=== PATIENT | male | born 1955 | race Caucasian/White ===

== ENCOUNTER 2018-10-17 07:19 | Day surgery (SDC) | payer OTHER ==
[2018-10-17] VITALS (15 sets, daily range): BP systolic 136–163; BP diastolic 68–91; PULSE 60–76; RESP 6–27; Ht 167.6 cm; Wt 94.2 kg
[~2018-10-17] VITALS: Ht 167.6 cm; Wt 94.2 kg
[~2018-10-17 07:19] MED LIST: BISA10SU75 PR; CEFAZOLIN 1 GM INJ ONE; CEFAZOLIN 2 GM/50 ML (PMX) 50 ML IVPB SCH; COU5 PO; HYDR12.53 PO; LISI-471 PO; ONDANSETRON 4 MG INJ ONE; PANT40TA4 PO; SIME80TA60 PO; SOD CHLORIDE 0.9% 1,000 ML IV SCH
[2018-10-17] MEDS ORDERED: LOSA50TA14 PO (08:14)
[2018-10-17] MEDS ORDERED: SULF500T45 PO (08:14)
[2018-10-17] MEDS ORDERED: NEBI10TA2 PO (08:14)
[2018-10-17] MEDS ORDERED: GABA300C PO (08:14)
[2018-10-17] MEDS ORDERED: PANT40TA3 PO (08:27)
[2018-10-17] MEDS ORDERED: FENTAnyl 50 MCG/ML VIAL ONE (08:41)
[2018-10-17] MEDS ORDERED: MIDAZOLAM 1 MG/ML 2 ML INJ ONE (08:42)
[2018-10-17] MEDS ORDERED: PROPOFOL 20 ML ONE (08:43)
[2018-10-17] MEDS ORDERED: LIDOCAINE 2% (SDV) 5 ML INJ ONE (08:43)
[2018-10-17] MEDS ORDERED: ROCURONIUM 50 MG INJ ONE (08:43)
[2018-10-17] MEDS ORDERED: SUCCINYLCHOLINE CHLORIDE 100 MG/5 ML SYG IV ONE (08:43)
[2018-10-17] MEDS ORDERED: METOCLOPRAMIDE 10 MG INJ ONE (08:44)
--- NOTE | 2018-10-17 09:14 | HPN ---
Date/Time of Note Date/Time of Note DATE: 10/17/18 TIME: 09:14 Interval H&P Admission Note Pt. seen H&P reviewed: No system changes BERNADETTE GLASGOW MD Oct 17, 2018 09:14
[2018-10-17] MEDS ORDERED: BUPIVACAINE 0.25% (MPF) 30 ML INJ ONE (09:27)
[2018-10-17] MEDS ORDERED: MIDAZOLAM 1 MG/ML 2 ML INJ IV PRN (09:30)
[2018-10-17] MEDS ORDERED: ONDANSETRON 4 MG INJ IV PRN ×2 (09:30→12:30)
[2018-10-17] MEDS ORDERED: KETOROLAC 30 MG INJ IV PRN ×2 (09:30→12:30)
[2018-10-17] MEDS ORDERED: LEVALBUTEROL (NEB) 1.25 MG/0.5 ML AMP HHN PRN (09:30)
[2018-10-17] MEDS ORDERED: hydrALAzine 20 MG INJ IV PRN (09:30)
[2018-10-17] MEDS ORDERED: LABETALOL HCL 20MG INJ IV PRN (09:30)
[2018-10-17] MEDS ORDERED: LORAZEPAM 2 MG INJ IV PRN (09:30)
[2018-10-17] MEDS ORDERED: DIPHENHYDRAMINE 50 MG INJ IV PRN (09:30)
[2018-10-17] MEDS ORDERED: MEPERIDINE 25 MG INJ IV PRN (09:30)
[2018-10-17] MEDS ORDERED: HYDROmorphONE 1 MG/5 ML IV SYRINGE IV PRN ×3 (09:30)
[2018-10-17] MEDS ORDERED: FENTAnyl 50 MCG/ML VIAL IV PRN (09:30)
--- NOTE | 2018-10-17 09:30 | PREAC ---
Date/Time of Note Date/Time of Note DATE: 10/17/18 TIME: 09:29 Anesthesia Eval and Record Evaluation Time Pre-Procedure Interview DATE: 10/17/18 TIME: 09:29 Age 62 Sex male NPO: 8 hrs Preoperative diagnosis inguinal hernia Planned procedure R open repair of inguinal hernia Past Medical History Past Medical History: Includes Cardio: HTN, Dyslipidemia, CHF Neuro: Peripheral neuropathy GI: GERD Psych: Depression, Anxiety Surgery & Anesthesia Issues No known issue Meds Anticoagulation: No Beta Liya within 24 hr: Yes Reported Medications Pantoprazole* (Protonix*) 40 Mg Tablet.dr, 40 MG PO DAILY, TAB 10/17/18 Nebivolol Hcl* (Bystolic*) 10 Mg Tablet, 10 MG PO DAILY, #30 TAB 10/17/18 Losartan Potassium* (Losartan Potassium*) 50 Mg Tablet, 50 MG PO DAILY, TAB 10/17/18 Sulfasalazine (Azulfidine) 500 Mg Tab, 500 MG PO BID, #60 TAB 10/17/18 Gabapentin* (Neurontin*) 300 Mg Capsule, 300 MG PO BID, #60 CAP 10/17/18 Discontinued Reported Medications Lisinopril* (Lisinopril*) 20 Mg Tablet, 20 MG PO DAILY, TAB 02/26/14 Discontinued Scripts Warfarin Sod (Coumadin) 5 Mg Tab, 5 MG PO ONCE@17, #30 Prov:FREIDA WARREN MD 03/08/14 Simethicone* (Mylicon*) 80 Mg Tab, 80 MG PO Q6, #30 TAB Prov:FREIDA WARREN MD 03/08/14 Pantoprazole (Protonix) 40 Mg Tabec, 40 MG PO BID, #30 Prov:FREIDA WARREN MD 03/08/14 Hydrochlorothiazide (Hydrochlorothiazide) 12.5 Mg Cap, 12.5 MG PO AC BREAKFAST, #20 Prov:FREIDA WARREN MD 03/08/14 Bisacodyl* (Bisacodyl*) 10 Mg Supp, 10 MG MT DAILY PRN for CONSTIPATION, #30 SUPP Prov:FREIDA WARREN MD 03/08/14 Current Medications Sodium Chloride 1,000 ml @ 75 mls/hr [id number] IV ; Start 10/17/18 at 06:00; Stop 10/17/18 at 19:19 Cefazolin Sodium/ Dextrose 50 ml @ 100 mls/hr PREOP IVPB ; Start 10/17/18 at 06:00; Stop 10/17/18 at 16:00 Meds reviewed: Yes Allergies Coded Allergies: No Known Allergy (Unverified , 10/17/18) Allergies Reviewed: Yes Labs/Studies Labs Reviewed: Reviewed by anesthesiologist test: N/A Pre-procedure Exam Last vitals Vital Signs Date Temp Pulse Resp B/P (MAP) Pulse Ox O2 O2 Flow FiO2 Time Delivery Rate 10/17/18 98.0 60 16 163/86 98 Room Air 08:06 (111) Airway: Adequate mouth opening, Adequate thyromental dist Mallampati: Mallampati IV Teeth: Normal Lung: Normal Heart: Normal ASA Physical Status ASA physical status: 3 Emergency: None Planned Anesthetic General/MAC: ETT Planned Pain Management Single shot nerve block, Parenteral pain med, Local by surgeon Pre-operative Attestations Prior to commencing anesthesia and surgery, the patient was re-evaluated, there was verification of: *The patient's identity *The results of appropriate recent lab work and preoperative vital signs *The above evaluation not changing prior to induction *Anesthetic plan, risk benefits, alternative and complications discussed with patient/family; questions answered; patient/family understands, accepts and wishes to proceed. NEWTON PADGETT MD Oct 17, 2018 09:30
[2018-10-17] MEDS ORDERED: ROPIVACAINE 0.5 % 30 ML VIAL ONE (12:06)
[2018-10-17] MEDS ORDERED: morphine 2 MG INJ IV PRN (12:30)
[2018-10-17] MEDS ORDERED: IBUPROFEN 600 MG TAB PO PRN (12:30)
[2018-10-17] MEDS ORDERED: HYDROCODONE/APAP (5/325) TAB PO PRN ×2 (12:30)
--- NOTE | 2018-10-17 12:46 | OPR ---
Date/Time of Note Date/Time of Note DATE: 10/17/18 TIME: 12:30 Operative Report Procedure Date: Oct 17, 2018 Preoperative Diagnosis Recurrent right inguinal hernia with chronically incarcerated bladder Postoperative Diagnosis Recurrent right inguinal hernia with chronically incarcerated bladder Operation/Procedure Performed 1. Open repair of recurrent right inguinal hernia with mesh (modifier 22) 2. Right ilioinguinal nerve block Surgeon see signature line Glass Smoother Otf Fortune MD Anesthesia Type: general Anesthesiologist: NEWTON PADGETT MD Estimated Blood Loss: 10 - 50 ml's Transfusion none Specimen Hernia sac Grafts/Implants Ethicon ultra pro plug and patch size large Complications none Pt Condition Post Procedure: stable Disposition: PACU Indications The patient is a 62-year-old male with multiple comorbidities including prior multiple inguinal and ventral hernia repairs which were sustained as a sequelae of perforated viscus secondary to liposuction and abdominoplasty which required exploratory laparotomy who presented to the office complaining of a painful right groin bulge as well as difficulty with urination. He was diagnosed on clinical exam as having a right inguinal hernia which was chronically nonreducible. A preoperative CT scan of the abdomen and pelvis was obtained which showed a large recurrent right inguinal hernia containing a significant portion of the urinary bladder. The patient was scheduled for open right inguinal hernia repair with mesh to prevent sequelae of hernia disease which include, but are not limited to: Incarceration and strangulation. All risks and benefits of the procedure including but not limited to: Wound infection, excessive bleeding, postoperative seroma/hematoma formation, nerve injury which may be temporary versus permanent, injury to the reproductive organs including the vas deferens and the testicle which may lead to testicular atrophy, injury to intra-abdominal organs necessitating subsequent operation, hernia recurrence, chronic pain, etc. were all explained to the patient full detail. The patient fully understood and wished to proceed with the procedure. Informed consent was therefore obtained. Procedure Description The patient was brought to the operating room and placed supine on the operating table. Bilateral sequential compression devices were placed on both lower extremities. A dose of broad-spectrum perioperative intravenous antibiotics was given. After the induction of smooth general anesthesia a Soto catheter was placed under sterile conditions and the patient's abdomen and bilateral groins were prepped and draped in standard surgical fashion. After performance of the surgical timeout 0.25% Marcaine with epinephrine was injected over the area of the incision. Incision was then made using a 15 blade scalpel from the right pubic tubercle towards the right anterior superior iliac spine. Incision was carried down through the skin into the subcutaneous tissues using Bovie electrocautery. There was fibrous replacement chronic scarring of the subcutaneous tissues all the way down to the level of Giacomo's fascia. Giacomo's fascia was incised. A large direct inguinal hernia sac containing the bladder was identified. Dissection was continued down to the level the aponeurosis of the external oblique muscle. External oblique muscle was replaced by scar tissue. There was a firm mass palpated in this area which appeared to be consistent with the prior mesh. There was scarring of the external oblique aponeurosis to the hernia sac. This was quite dense scarring with obliteration of natural planes. The area was gently opened and tedious dissection above that which was usual and customary for procedure of this type was performed to separate the sac from the prior mesh and the external oblique muscle. The sac was also identified to be densely adhered to the cord. It was dissected off of the cord. The cord was then isolated using a [place] drain. The ilioinguinal nerve was not identified. The cord structures were preserved throughout the entirety of the procedure. The sac was gently opened atraumatically. The bladder was identified. It was dissected off of the sac taking great care not to injure the bladder. The sac was transected and passed off the field as speci men. The large direct hernia defect was identified once dissected free of surrounding tissues the bladder was reduced back into its anatomical position. A complete blowout of the floor of the inguinal canal was also identified. The remaining tissues were attenuated and weak. The portions of the old mesh which could not be safely dissected from the aponeurosis of the external oblique muscle and spermatic cord were left in situ. The direct hernia defect was then repaired using a large sized Ethicon ultra pro plug. The plug was sutured in place using interrupted 3-0 Vicryl sutures. An onlay mesh was then used to reconstruct the floor of the inguinal canal. It was secured in place using interrupted 2-0 Novafil sutures. Both the plug and the mesh were soaked in antibiotic irrigation prior to placement in the field. A slit was made in the mesh to accommodate the spermatic cord. With the repair complete it was examined and noted to be hemostatic and tension-free. The wound cavity was then irrigated with more antibiotic containing irrigation. Spermatic cord was then placed back into its anatomical position. What remained of the aponeurosis of the external oblique muscle was then reapproximated using a running 3-0 Vicryl suture. Incision was then closed in layers using a running 3-0 Vicryl suture for the Giacomo's fascia. The skin was then reapproximated using skin beena. Attention was then turned to the right ilioinguinal nerve block. 10 cc of 0.25% Marcaine with epinephrine was then injected in a radial fashion approximately 2 fingerbreadths medial and inferior to the right anterior superior iliac spine. Further local anesthesia was then injected around the incision site. Incision was cleaned and sterile dressings were applied. The patient was awoken from anesthesia and transferred to the recovery room in stable condition. Both testicles were palpated and noted to be in their anatomical positions at the end of the case. The Soto catheter was removed at the end of the case. The urine remained clear yellow during the entirety of the procedure. All counts were correct at the end of the case 2. This procedure required amount of skill and time which was in excess of the procedure there is usual and customary of this type. Assistance from second lucas rgical intending was necessary given the complexity. For this reason modifier 22 should be applied. BERNADETTE GLASGOW MD Oct 17, 2018 12:45
[2018-10-17] MEDS: FENTAnyl 50 MCG/ML VIAL IV PRN ×2 (13:04→13:24)
--- NOTE | 2018-10-17 17:34 | PAC ---
Date/Time of Note Date/Time of Note DATE: 10/17/18 TIME: 17:34 Post-Anesthesia Notes Post-Anesthesia Note Last documented vital signs Vital Signs Date Temp Pulse Resp B/P (MAP) Pulse Ox O2 O2 Flow FiO2 Time Delivery Rate 10/17/18 97.8 74 18 153/82 99 14:03 (105) 10/17/18 Room Air 13:53 Nasal Cannula 10/17/18 8.0 12:47 Activity: WNL Respiratory function: WNL Cardiovascular function: WNL Mental status: Baseline Pain reasonably controlled: Yes Hydration appropriate: Yes Nausea/Vomiting absent: Yes NEWTON PADGETT MD Oct 17, 2018 17:34
== END 2018-10-17 14:43 | disposition home or self-care (01) ==
LOC: SDS 07:19
PROVIDERS: ATTEND Surgery
DX: K40.31 Unilateral inguinal hernia, with obstruction, without gangrene, recurrent (principal); I11.0 Hypertensive heart disease with heart failure; I50.9 Heart failure, unspecified
CPT/HCPCS: 49521; 88302; C1781; J0690; J2250; J2405; J2765; J2795; J3010; Z7512; Z7610